=== PATIENT | male | born 1955 | race Caucasian/White ===

== ENCOUNTER 2021-01-15 11:08 | Emergency (ER) | payer SELFPAY ==
[2021-01-16 16:08] LABS: SARS-CoV-2 NAA Not Detected (Not Detected)
== END 2021-01-15 12:07 | disposition home or self-care (01) ==
LOC: JVIRT 11:08
DX: Z20.822 Contact with and (suspected) exposure to COVID-19 (principal)
CPT/HCPCS: C9803; Q3014-GT; U0003; U0005